=== PATIENT | male | born 1960 | race African-American/Black ===

== ENCOUNTER 2025-10-03 10:48 | Outpatient (AMB) | payer OTHER, SELFPAY ==
--- NOTE | 2025-10-03 11:14 | A.OFFVIS_ITS ---
Intake Visit Reasons: LUTS/Elevated PSA Intake Note: New Patient is present for elevated PSA &LUTS Urology Rx:Tamsulosin PVR:0 mls Blood Thinners:none Imaging completed: none' Labs done: Total PSA 18.0 Smoker: former [employer] Required: No Accompanied by: Self / Same As Patient Allergies No Known Allergies Allergy (Verified 10/03/25 11:27) HPI Comments Details: Dave is a pleasant [place]ese-speaking male. He is a patient of . He is seen for the following urologic conditions - elevated PSA - bladder outlet obstruction Elevated PSA Labs - 09/02 18 Discussed serious nature of lab results He feels minimal symptoms Is willing to take dutasteride and have repeat labs in four-months Understands there may be a delay in diagnosis and treatment of potential prostate cancer if he for goes prostate biopsy Bladder outlet obstruction Baseline urinary urgency and frequency Has been on tamsulosin Review of Systems Const Denies chills and Denies fever(s) Card Reports no additional complaints and Denies syncope Resp Denies cough GI Denies abdominal pain and Denies heartburn Reports as per HPI and Denies change in libido Neuro Denies syncope Psych Denies change in libido Endo Denies change in libido Physical Exam Const General: cooperative, healthy appearing, comfortable and no acute distress Orientation/consciousness: patient oriented x3 HEENT Face and sinus: Yes normal facial exam Mouth: moist mucous membranes Neck Neck: Yes normal visual inspection, Yes full ROM and Yes trachea midline Chest Chest palpation & inspection: normal inspection of the chest Resp Effort & Inspection: normal respiratory effort, able to speak in complete sentences and no respiratory distress GI Inspection: Yes normal to inspection Back/Spine/Pelvis Cervical Spine: normal cervical lordosis Thoracic/Lumbar Spine: thoracic and lumbar spine normal to inspection Skin General skin exam: no rashes or lesions noted Neuro General: patient oriented x3, gait normal, tone normal and moves all extremities Extrem General: Yes normal to inspection and Yes capillary refill normal Office Procedures Post Void Residual Post Residual Void Post Void Residual (PVR): 0 06975-Mica Void Residual by ultrasound Results AMB Urinalysis, Automated UA Leukoctes 0 Aleksandr/uL Last Edit by ART Najera on 10/03/25 11:28 UA Nitrite Negative Last Edit by ART Najera on 10/03/25 11:28 UA Urobilinogen 0.2 mg/dL Last Edit by Lidiagilberto Post, [facility] on 10/03/25 11:28 UA Protein 0 mg/dL Last Edit by Lidia Post, [facility] on 10/03/25 11:28 UA pH 6.0 Last Edit by Lidia Colon, [facility] on 10/03/25 11:28 UA Blood 10 Jeff/uL Last Edit by Lidia Colon, [facility] on 10/03/25 11:28 UA Specific Brick 1.015 Last Edit by Lidia Post, [facility] on 10/03/25 11:2 8 UA Ketone Negative Last Edit by Lidia Post, [facility] on 10/03/25 11:28 UA Bilirubin 0 mg/dL Last Edit by Lidia Post, [facility] on 10/03/25 11:28 UA Glucose 0 mg/dL Last Edit by Lidia Post, [facility] on 10/03/25 11:28 Results Reviewed Results Reviewed: Laboratory Last Values Urine pH (Auto) 6.0 10/03/25 11:28 Specific Brick (Auto) 1.015 10/03/25 11:28 Urine Protein (Auto) 0 mg/dL 10/03/25 11:28 Glucose (UA)(Auto) 0 mg/dL 10/03/25 11:28 Urine Ketones (Auto) Negative 10/03/25 11:28 Urine Blood (Auto) 10 Jeff/uL 10/03/25 11:28 Urine Nitrite (Auto) Negative 10/03/25 11:28 Urine Bilirubin (Auto) 0 mg/dL 10/03/25 11:28 Urine Urobilinogen (Auto) 0.2 mg/dL 10/03/25 11:28 Leukocyte Esterase (Auto) 0 Aleksandr/uL 10/03/25 11:28 Assessment & Plan Assessment & Plan (1) Bladder outlet obstruction: Code(s): N32.0 - Bladder-neck obstruction Category: Medical (2) Elevated PSA: Code(s): R97.20 - Elevated prostate specific antigen [PSA] Category: Medical Plan Initiate dutasteride Four-month follow-up repeat PSA Orders: Orders PSA,Total (Free>4and<10) 4 Months N32.0 - Bladder-neck obstruction Medications: New dutasteride 0.5 mg PO DAILY 90 caps 1RF 90 days N32.0 - Bladder-neck obstruction Patient Instructions: This note is constructed using voice recognition software. While every effort has been made to ensure accuracy customer support technician errors may have been included. Imaging studies, laboratory and physical exam results were discussed and reviewed in detail. No major barriers to patient understanding were identified. An opportunity to ask questions regarding the treatment plan was provided. All questions were answered. The patient expressed understanding and agreement with the above treatment plan. The patient is aware they should contact our office by phone for worsening of their current condition or the appearance of new urologic symptoms. Compliance is encouraged with any medications and followup testing that is ordered. It is a privilege to participate in the urologic care of your patient. If you have any questions or concerns regarding treatment for the above conditions, or other urologic issues, please do not hesitate to contact me. The office telephone contact is [phone]. Sincerely, Dr Juan Francisco Hernandez MD, [facility] - Urology Compassionate Specialist Care for the Genitourinary System Coding Level of Care Code New Pt Level 4 (29206) Diagnoses Bladder outlet obstruction N32.0 Elevated PSA R97.20 CPT Codes Post Residual Void - PVR CPT Code: 24432-Idmw Void Residual by ultrasound ([id number])
--- OUTSIDE RECORDS SUMMARY | 2025-10-03 14:01 | XMS_ITS | Clinical Summary ---
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 [employer] Name Role Phone Latasha Nixon CONTRACT ASSOCIATE Primary Care Provider [phone] Social History Tobacco Use Types Packs/Day Years Used Date Smoking Tobacco: Never Assessed Sex and Gender Information Value Date Recorded Sex Assigned at Male 03/08/2025 3:49 PM EDT Legal Sex Male 10:40 AM EST Gender Identity Male 03/08/2025 3:33 PM EDT Sexual Orientation Not on file Plan of Treatment Health Maintenance Due Date Last Done Comments Colorectal Cancer Screening: Colonoscopy 1960 RSV Immunization Adult Patients (1 - Risk 50-74 years 1-dose series) 2012 Social Influencers of Health Screening 10/13/2022 Depression Screening 11/09/2024 Hypertension/CHF/CAD Annual BMP Blood Test 01/02/2025 COVID-19 Vaccine ( season) 2025 10/13/2023, 09/04/2022, 05/29/2022, Additional history exists Influenza Vaccine (#1) 2025 , 08/14/2023, 08/28/2020, Additional history exists Lung Cancer Screening (Low Dose CT) 03/10/2026 03/10/2025, 03/02/2024, 03/02/2023, Additional history exists Pneumococcal Vaccine: 50+ Years (3 of 3 - PCV20 or PCV21) 06/20/2027 06/20/2022, 09/12/2019 DTaP,Tdap,and Td Vaccines (3 - Td or Tdap) 09/12/2029 09/12/2019, 05/21/2011 Cholesterol Screening (Lipid Panel) 09/26/2029 09/26/2024, 11/25/2023, 12/24/2022, Additional history exists HIV Screening Completed 09/12/2019 Zoster Vaccines Completed 11/14/2019, 09/12/2019 Hepatitis C Screening Completed 07/17/2021, 019 HIB Vaccines Aged Out No longer eligi ble based on patient's age to complete this topic HPV Vaccines Aged Out No longer eligi ble based on patient's age to complete this topic Hepatitis A Vaccines Aged Out No long er eligible based on patient's age to complete this topic Hepatitis B Vaccines Aged Out No long er eligible based on patient's age to complete this topic IPV Vaccines Aged Out No longer eligi ble based on patient's age to complete this topic MMR Vaccines Aged Out No longer eligi ble based on patient's age to complete this topic Meningococcal ACWY Vaccine Aged Out N o longer eligible based on patient's age to complete this topic Meningococcal B Vaccine Aged Out No l onger eligible based on patient's age to complete this topic RSV Immunization Patients Under 20 months Aged Out No longer eligible based on patient's age to complete this topic Varicella Vaccines Aged Out No longer eligible based on patient's age to complete this topic Procedures Procedure Name Priority Date/Time Associated Diagnosis Comments CT LUNG SCREENING Routine 03/10/2025 4:5 2 PM EDT Encounter for screening for malignant neoplasm of respiratory organs Nicotine dependence, cigarettes, uncomplicated from Last 3 Months or Most Recently Relevant to Health Maintenance Results * CT Lung Screening (03/10/2025 4:52 PM EDT) Anatomical Region Laterality Modality Chest Computed Tomogra phy 03/13/2025 4:47 PM EDT Impressions 03/13/2025 4:52 PM EDT Impression: No suspicious developing pulmonary nodule. No significant change. Lung-RADS Category: Lung-RADS 1: No nodules or definitely benign nodules. Continue annual screening with Low Dose Chest CT in 12 months. [place] ([id number]) -------- FINAL REPORT -------- Dictated By: Amelia Little Dictated Date: 03/13/2025 16:47 ET Assigned Physician: Amelia Little Reviewed and Electronically Signed By: Amelia Little Signed Date: 03/13/2025 16:52 ET Workstation ID: [id number] Transcribed By: Self Edit Transcribed Date: 03/13/2025 16:47 ET Narrative 03/13/2025 4:52 PM EDT History: 64 year-old 34 pack-year current smoker, asymptomatic, for lung cancer screening. Comparison: 02/29/24 Technique: Helical volumetric imaging of the thorax was performed, using low- dose technique, without IV contrast. DLP: 154.69 mGy/cm CTDIvol: 4.83 mGy GE [facility]peed VCT Iterative reconstruction technique Findings: Lungs and Airways: The trachea and central bronchial tree remains patent. Diffuse bronchial wall thickening is again seen, consistent with bronchitis in this setting. Evaluation the lungs is limited due to respiratory motion. No suspicious developing pulmonary nodules is seen. Pleura: No pleural or pericardial effusions are seen. Base of neck, mediastinum and heart: Mild multichamber cardiomegaly is noted. The included portions of the thyroid gland are unremarkable. No developing thoracic lymphadenopathy is seen. Soft tissues: The overlying soft tissues are unremarkable. Abdomen: This study was performed without contrast and with lower than standard dose. These factors reduce the sensitivity for detection of small lesions in the upper abdomen. No significant abnormality is seen. Procedure Note Amelia Little MD - 03/13/2025 History: 64 year-old 34 pack-year current smoker, asymptomatic, for lungcancer screening. Comparison: 02/29/24 Technique: Helical volumetric imaging of the thorax was performed, usinglow-dose technique, without IV contrast. DLP: 154.69 mGy/cm CTDIvol: 4.83 mGy GE [facility]peed VCT Iterative reconstruction technique Findings: Lungs and Airways: The trachea and central bronchial tree remains patent.Diffuse bronchial wall thickening is again seen, consistent withbronchitis in this setting. Evaluation the lungs is limited due to respiratory motion. No suspiciousdeveloping pulmonary nodules is seen. Pleura: No pleural or pericardial effusions are seen. Base of neck, mediastinum and heart: Mild multichamber cardiomegaly isnoted. The included portions of the thyroid gland are unremarkable. Nodeveloping thoracic lymphadenopathy is seen. Soft tissues: The overlying soft tissues are unremarkable. Abdomen: This study was performed without contrast and with lower thanstandard dose. These factors reduce the sensitivity for detection of smalllesions in the upper abdomen. No significant abnormality is seen. IMPRESSION: Impression: No suspicious developing pulmonary nodule. No significant change. Lung-RADS Category: Lung-RADS 1: No nodules or definitely benign nodules.Continue annual screening with Low Dose Chest CT in 12 months. [place] ([id number]) -------- FINAL REPORT -------- Dictated By: Amelia Little Dictated Date: 03/13/2025 16:47 ET Assigned Physician: Amelia Little Reviewed and Electronically Signed By: Amelia Little Signed Date: 03/13/2025 16:52 ET Workstation ID: [id number] Transcribed By: Self Edit Transcribed Date: 03/13/2025 16:47 ET Antonina Borrego MD IMG CT PROCEDURES Final Result from Last 3 Months or Most Recently Relevant to Health Maintenance Insurance [employer] Care Teams [employer] Relationship Specialty Start Date End Date Latasha Nixon FNP [address] [place] [address] PCP - General Nurse Practitioner 03/08/25
== END 2025-10-03 12:57 | disposition home or self-care (01) ==
LOC: HO.HUSH 10:48
PROVIDERS: Visit Provider Urology
DX: N32.0 Bladder-neck obstruction (principal); R97.20 Elevated prostate specific antigen [PSA]
CPT/HCPCS: 99204

== ENCOUNTER → 2025-10-03 10:48 | Outpatient (BNVA) | payer OTHER, SELFPAY | PROVIDERS: Visit Provider Urology | DX: N32.0 Bladder-neck obstruction (principal); R97.20 Elevated prostate specific antigen [PSA] | CPT/HCPCS: 51798 ==